=== PATIENT | male | born 1980 | race African-American/Black ===

== ENCOUNTER 2020-01-03 06:14 | Emergency (ER) | payer SELFPAY ==
[~2020-01-03] VITALS: Ht 180.3 cm; Wt 86.0 kg
[2020-01-03] MEDS ORDERED: ASPIRIN 81MG TABLET PO ONE (09:45)
[2020-01-03] MEDS: NITROGLYCERIN 0.4MG TABLET SL SL PRN ×3 (09:46→10:37)
[2020-01-03 09:47] LABS: EOSINOPHILS % 3.7 % (0.0-5.0); HEMATOCRIT. 40.4 % (42.0-52.0); HEMOGLOBIN. 13.5 g/dL (14.0-18.0); LYMPHOCYTES % 30.3 % (20.0-50.0); MEAN CORPUSCULAR HEMOGLOBIN 25.9 pg (28.0-32.0); MEAN CORPUSCULAR VOLUME 77.3 fL (80.0-94.0); MEAN PLATELET VOLUME 7.9 fl (7.4-10.4); PLATELET 306 x1000/uL (130-400); RED BLOOD CELL COUNT 5.22 mill/uL (4.7-6.1); RED CELL DISTRIBUTION WIDTH 16.3 % (11.6-14.6)
[2020-01-03 09:55] LABS: CHLORIDE 107 mEq/L (98-107)
[2020-01-03 09:58] LABS: ETHANOL BLOOD < 10 mg/dL
[2020-01-03 09:59] LABS: D-DIMER < 0.19 mg/L FEU (<0.50); PARTIAL THROMBOPLASTIN TIME 33.5 sec (23.4-31.0); PROTHROMBIN TIME 10.6 sec (9.6-11.0)
[2020-01-03 10:06] LABS: *BARBITURATES SCREEN URINE NEGATIVE (NEGATIVE)
[2020-01-03 10:10] LABS: *AMPHETAMINES SCREEN URINE NEGATIVE (NEGATIVE); *BENZODIAZEPINES SCREEN URINE NEGATIVE (NEGATIVE); *COCAINE SCREEN URINE NEGATIVE (NEGATIVE); METHADONE URINE SCREEN NEGATIVE (NEGATIVE); OPIATES URINE SCREEN NEGATIVE (NEGATIVE)
[2020-01-03 10:11] LABS: CANNABINOID URINE SCREEN NEGATIVE (NEGATIVE); PHENCYCLIDINE URINE SCREEN NEGATIVE (NEGATIVE)
[2020-01-03 10:40] VITALS: BP 122/83
== END 2020-01-03 11:34 | disposition left against medical advice (07) ==
LOC: ER 06:14
DX: R07.89 Other chest pain (principal); M79.89 Other specified soft tissue disorders
CPT/HCPCS: 36415; 71045; 80053; 80305; 80320; 83690; 83880; 84484; 85025; 85379; 85610; 85730; 93005; 93970; 99285; Z7610; G0480